=== PATIENT | female | born 1950 | race Caucasian/White ===

== ENCOUNTER 2016-06-06 14:31 | Inpatient (IN) | payer MEDICARE, BC ==
[~2016-06-06] VITALS: Ht 154.9 cm; Wt 94.6 kg
[2016-06-07] MEDS: LACTATED RINGER'S 1000 ML IV SCH (06:00)
[2016-06-07 06:05] VITALS: BP 122/77; PULSE 70; RESP 16; TEMP 97.8; O2SAT 97
[2016-06-07] MEDS ORDERED: ASPI81CH CHEW (06:05)
[2016-06-07] MEDS ORDERED: DEXI60CA PO (06:05)
[2016-06-07] MEDS ORDERED: CHOL1CAP34 PO (06:05)
[2016-06-07] MEDS ORDERED: CENTTAB PO (06:05)
[2016-06-07] MEDS ORDERED: OMEGCAP PO (06:05)
[2016-06-07] MEDS ORDERED: VITA500T49 PO (06:05)
[2016-06-07] MEDS ORDERED: LIPI20TA PO (06:05)
[2016-06-07] MEDS ORDERED: CALC1TAB87 PO (06:05)
[2016-06-07] MEDS ORDERED: IBAN150T3 PO (06:05)
[2016-06-07] MEDS ORDERED: VITA400T PO (06:05)
[2016-06-07] MEDS ORDERED: IRBE150T49 PO (06:05)
[2016-06-07] MEDS ORDERED: CHLORHEXIDINE GLUCONATE 4% SOLN 120 ML BTL TOP SCH (06:15)
[2016-06-07] MEDS ORDERED: TRANEXAMIC ACID IV SCH (06:15)
[2016-06-07] MEDS ORDERED: VANCOMYCIN 1000 MG/NS 250 ML (for <70 kg) IV SCH ×2 (06:15)
[2016-06-07] MEDS ORDERED: SODIUM CHLORID 0.9% 500 ML IV SCH (06:15)
[2016-06-07] MEDS ORDERED: EXPAREL PERI-ARTICULAR INJECTION (TOTAL VOL. 60 ML) P-ARTICULR SCH ×2 (06:15)
[2016-06-07] MEDS ORDERED: ceFAZolin 2 GM PREMIX 50 ML IV SCH (06:15)
[2016-06-07] MEDS ORDERED: METOPROLOL TARTRATE 25 MG TAB PO PRN (06:15)
[2016-06-07] MEDS ORDERED: INSULIN HUMAN REGULAR 1,000 UNITS/10 ML VIAL SQ PRN (06:15)
[2016-06-07] MEDS ORDERED: SODIUM CHLORIDE 0.9% IV SCH (06:15)
[2016-06-07] MEDS ORDERED: MIDAZOLAM HCL 2 MG/2 ML VIAL ONE (06:55)
[2016-06-07] MEDS ORDERED: ACETAMINOPHEN 1000 MG/100 ML VIAL IV ONE (06:55)
[2016-06-07] MEDS ORDERED: FAMOTIDINE 20 MG/2 ML VIAL ONE (06:55)
[2016-06-07] MEDS ORDERED: BUPIVACAINE/EPINEPHRINE 0.25% PF 30 ML VIAL ONE (07:09)
[2016-06-07] MEDS ORDERED: GENTAMICIN SULFATE 80 MG/2 ML VIAL ONE (07:09)
[2016-06-07] MEDS ORDERED: WALKER/ADULT/FO1 MIS (07:55)
[2016-06-07] MEDS ORDERED: HYDR-3288 PO (07:55)
[2016-06-07] MEDS ORDERED: XARE10TA PO (07:55)
--- NOTE | 2016-06-07 08:21 | PD.ORT.PN ---
Subjective Subjective Remarks Postoperative day 0 status post right femur long intramedullary nail for subtrochanteric femur stress fracture Objective Vitals Vital Signs Date Time Temp Pulse Resp B/P Pulse Ox O2 Delivery O2 Flow Rate FiO2 06/07/16 06:05 97.8 70 16 122/77 97 Assessment & Plan Assessment and Plan Weight-bear as tolerated Physical therapy Lovenox/Xarelto Discharge home Friday or Friday Kilo Elizondo MD Jun 07, 2016 08:21
--- NOTE | 2016-06-07 08:23 | PD.OP ---
cc: Kilo Zamorano MD Operative Report Date of Surgery: Jun 07, 2016 Preoperative Diagnosis: Right proximal femur atypical subtrochanteric femur stress fracture Postoperative Diagnosis: Right proximal femur atypical subtrochanteric femur stress fracture Procedure: Intramedullary nail fixation right femur Surgeon: Kilo Zamorano Linen Grader(s): FABRICIO Dc PA-C The surgical procedure was assisted by my physician acquisitions assistant. My P.A. presence was necessary throughout this case for the manipulation and positioning of the surgical extremity. My P.A. was assisting me throughout the duration of this procedure. The skill set of a physician acquisitions assistant was medically necessary to complete this procedure. During the surgical case the surgical pathologist was working at the back table and the physician acquisitions assistant was directly assisting me. Operation and Findings: Implants used: 11 mm x [360]mm 125 Synthes TFNA troch nail Plan of activity: Weight-bear as tolerated Patient was seen and evaluated preoperatively. The patient has significant hip pain from proximal femur fracture. The risk and benefits of surgery were discussed in depth with the patient to include bleeding, infection, nonunion, malunion, need for hip replacement, painful hardware, as well as medical competitions including blood clots, stroke, heart attack, and . Informed consent was obtained. Operative site was marked. Patient was brought to the operating room and placed on fracture table. IV sedation was administered by anesthesiologist. Timeout procedure was performed. Hip and leg were prepped with alcohol followed by DuraPrep and draped in the usual sterile fashion. IV antibiotics were given prior to incision. Procedure began with reduction of fracture. Traction was applied. The leg was manipulated to achieve reduction. Excellent reduction was achieved. Fluoroscopy was used to confirm reduction. A three inch incision was made proximal to the trochanter. Subcutaneous tissue was dissected bluntly. Guidepin was placed at the tip of the trochanter and advanced into the femoral canal. Fluoroscopy confirmed appropriate guidepin placement. A opening reamer was placed over the guidepin. A long ball tipped guide pin was now placed down the femoral canal into the center of the distal femur. The nail length was now measured. Fluoroscopy confirmed appropriate guidepin placement. Flexible reamers were now passed over the guidepin to ream the intramedullary canal. The Synthes TFNA nail was attached to the insertion handle. Nail was now placed over the guidepin into the femoral canal. Fluoroscopy confirmed appropriate nail placement. A second incision was made over the lateral thigh. Cannulas were placed through the insertion handle down to the femur. Guidepin was now placed through the femoral nail into the center of the femoral head. Fluoroscopy confirmed appropriate guidepin placement. Screw length was measured. Cannulated drill was placed over the guidepin. Appropriate length lag screw was now placed. Traction was released and compression was applied. The set screw was now tightened in dynamic mode. Next, using perfect [place] technique two distal interlocking screws were placed. Screw holes were predrilled and screw lengths were measured. Final fluoroscopy revealed well aligned fracture with well-placed hardware. Incision was closed with 3-0 Vicryl and toan. Sterile dressings were applied. Patient was awakened and transferred to recovery room. Kilo Zamorano MD Jun 07, 2016 08:23
[2016-06-07] MEDS ORDERED: SODIUM CHLORIDE 0.9% FLUSH 5 ML FLUSH IVF PRN (08:30)
[2016-06-07] MEDS ORDERED: NON-FORMULARY DRUG (Cholecalciferol (Vitamin D3) 50,000 UNITS) PO SCH (08:30)
[2016-06-07] MEDS ORDERED: diphenhydrAMINE HCL 25 MG CAP PO PRN (08:30)
[2016-06-07] MEDS ORDERED: ONDANSETRON HCL 4 MG/2 ML VIAL IVP PRN (08:30)
[2016-06-07] MEDS ORDERED: MORPHINE SULFATE 4 MG/ML INJ IV PUSH PRN (08:30)
[2016-06-07] MEDS ORDERED: ACETAMINOPHEN/HYDROcodone 325 MG/7.5 MG TAB PO PRN (08:30)
[2016-06-07] MEDS ORDERED: *morphine SULFATE 8 MG/ML PERIprocedure ONLY ONE ×3 (08:44→08:57)
[2016-06-07] MEDS ORDERED: fentaNYL CITRATE 250 MCG/5 ML AMP ONE (08:46)
[2016-06-07] MEDS ORDERED: DO NOT ADM ANY ANTICOAGULANT DRUGS XX PRN (09:00)
[2016-06-07] MEDS ORDERED: *HYDROmorphone PF 1 MG VIAL PERIprocedural Use ONLY ONE (09:06)
[2016-06-07] MEDS ORDERED: ERGOCALCIFEROL (VIT D2) 50,000 UNIT CAP PO ONE (10:00)
[2016-06-07] MEDS: ACETAMINOPHEN/HYDROcodone 325 MG/7.5 MG TAB PO PRN ×4 (11:01→21:31)
[2016-06-07] MEDS ORDERED: PROPOFOL 200 MG/20 ML AMP IV ONE (12:00)
[2016-06-07] MEDS ORDERED: ePHEDrine/NS 50 MG/5 ML SYR IV ONE (12:00)
[2016-06-07] MEDS ORDERED: ONDANSETRON HCL 4 MG/2 ML VIAL IV PUSH ONE (12:00)
[2016-06-07 12:35] VITALS: BP 129/59; PULSE 80; RESP 18; TEMP 95.6; O2SAT 100
--- NOTE | 2016-06-07 13:39 | RADRPT ---
EXAM DATE/TIME: 06/07/2016 08:08 [facility] COMPARISON: No previous studies available for comparison. INDICATIONS: ORIF Right femur IM Nail. MEDICAL HISTORY: None. SURGICAL HISTORY: None. ENCOUNTER: Initial ACUITY: 1 day PAIN SCORE: Non-responsive. LOCATION: Right Femur. FINDINGS: Hardware is noted within the right femur status post ORIF. Right knee replacement is also noted. Th e femur appears to be well-aligned. CONCLUSION: 1. Status post ORIF of right femur fracture with hardware in good position and femur well-aligned. Suleiman Prince MD on June 07, 2016 at 13:12 Board Certified Radiologist. This report was verified electronically.
[2016-06-07] MEDS: CALCIUM/VITAMIN D 250 MG/125 U TAB PO SCH ×2 (13:47→17:51)
[2016-06-07 16:00] VITALS: BP 136/65; PULSE 69; RESP 18; TEMP 96.7; O2SAT 95
--- NOTE | 2016-06-07 17:52 | EKG ---
Date Performed: 06/07/2016 Time Performed: 06:10:31 PTAGE: 66 years EKG: SINUS BRADYCARDIA BORDERLINE ECG NO PREVIOUS TRACING DOCTOR: Maegan Littlejohn Interpretating Date/Time 06/07/2016 17:51:38
[2016-06-07] MEDS ORDERED: CHOLECALCIFEROL (VIT D3) 400 UNIT TAB PO SCH (21:00)
[2016-06-07] MEDS: SODIUM CHLORIDE 0.9% FLUSH 5 ML FLUSH IVF SCH (21:30)
[2016-06-07] MEDS: ATORVASTATIN 20 MG TAB PO SCH (21:30)
[2016-06-07] MEDS: LOSARTAN 50 MG TAB PO SCH (21:30)
[2016-06-08] VITALS (8 sets, daily range): BP systolic 106–129; BP diastolic 54–61; PULSE 67–97; RESP 16–20; TEMP 96.7–98.8; O2SAT 94–100
[2016-06-08] MEDS: ACETAMINOPHEN/HYDROcodone 325 MG/7.5 MG TAB PO PRN ×7 (01:29→21:23)
[2016-06-08 07:26] LABS: HEMATOCRIT 34.7 % (35.0-46.0); REVIEW FLAG FINAL
[2016-06-08] MEDS: CHOLECALCIFEROL (VIT D3) 5000 UNIT CAP PO SCH (08:06)
[2016-06-08] MEDS: CALCIUM/VITAMIN D 250 MG/125 U TAB PO SCH ×3 (08:06→18:00)
[2016-06-08] MEDS: ASPIRIN 81 MG CHEW TAB CHEW SCH (08:07)
[2016-06-08] MEDS: CYANOCOBALAMIN 1,000 MCG TAB PO SCH (08:08)
[2016-06-08] MEDS: ENOXAPARIN SODIUM 30 MG/0.3 ML SYRINGE SQ SCH (08:08)
[2016-06-08] MEDS: SODIUM CHLORIDE 0.9% FLUSH 5 ML FLUSH IVF SCH ×2 (08:08→20:49)
--- NOTE | 2016-06-08 12:41 | PD.ORT.PN ---
Subjective Subjective Remarks Patient comfortable. Pain controlled. OOB sitting in recliner. Eating lunch. NAD. Objective Vitals Vital Signs Date Time Temp Pulse Resp B/P Pulse Ox O2 Delivery O2 Flow Rate FiO2 06/08/16 10:09 98 21 06/08/16 08:00 96.8 67 20 114/55 98 06/08/16 05:10 94 21 06/08/16 04:00 96.9 75 18 106/54 97 06/08/16 00:00 96.7 74 16 116/57 98 06/07/16 16:00 96.7 69 18 136/65 95 06/07/16 14:45 18 I/O 06/07/16 06/07/16 06/07/16 06/08/16 06/08/16 06/08/16 07:00 15:00 23:00 07:00 15:00 23:00 Intake Total 1000 ml 1200 ml 366 ml Output Total 50 ml Balance 950 ml 1200 ml 366 ml Intake Oral 1200 ml 240 ml IV Total 126 ml Other 1000 ml Output Estimated Blood Loss 50 ml # Voids 4 1 # Bowel Movements 0 0 Result Diagram: 06/08/16 0556 Procedures ORIF Right Hip Intertrochanteric Nail Objective Remarks Right Hip dressing in place moderate drainage calves soft negative Andrae's NVI Assessment & Plan Ortho Post Op Day #: 1 Problem List: Assessment and Plan POD #1 Physical therapy -Weightbearing as tolerated Initiate dressing changes on POD #2 Pain management DVT prophylaxis Lovenox/Xarelto Discharge anticipating home Friday Elmo Barajas Jun 08, 2016 12:41
[2016-06-08] MEDS: BISACODYL EC 5 MG TABEC PO PRN (14:51)
[2016-06-08] MEDS: PANTOPRAZOLE SOD 20 MG DELAYED RELEASE TAB PO SCH (18:25)
[2016-06-08] MEDS: LACTATED RINGER'S 1000 ML IV SCH (19:22)
[2016-06-08] MEDS: LOSARTAN 50 MG TAB PO SCH (20:49)
[2016-06-08] MEDS: ATORVASTATIN 20 MG TAB PO SCH (20:49)
[2016-06-09 00:05] VITALS: BP 106/53; PULSE 81; RESP 16; TEMP 97.8; O2SAT 97
[2016-06-09] MEDS: ACETAMINOPHEN/HYDROcodone 325 MG/7.5 MG TAB PO PRN ×4 (00:28→10:39)
[2016-06-09] MEDS: BISACODYL EC 5 MG TABEC PO PRN (00:33)
[2016-06-09] MEDS: PANTOPRAZOLE SOD 20 MG DELAYED RELEASE TAB PO SCH (05:04)
[2016-06-09] MEDS: ENOXAPARIN SODIUM 30 MG/0.3 ML SYRINGE SQ SCH (07:58)
[2016-06-09 08:00] VITALS: BP 134/59; PULSE 96; RESP 20; TEMP 98.1; O2SAT 98
[2016-06-09] MEDS: CYANOCOBALAMIN 1,000 MCG TAB PO SCH (09:15)
[2016-06-09] MEDS: ASPIRIN 81 MG CHEW TAB CHEW SCH (09:15)
[2016-06-09] MEDS: CALCIUM/VITAMIN D 250 MG/125 U TAB PO SCH (09:15)
[2016-06-09] MEDS: CHOLECALCIFEROL (VIT D3) 5000 UNIT CAP PO SCH (09:15)
--- NOTE | 2016-06-09 09:46 | PD.ORT.PN ---
Subjective Subjective Remarks Patient comfortable. Pain controlled. OOB sitting in recliner. Objective Vitals Vital Signs Date Time Temp Pulse Resp B/P Pulse Ox O2 Delivery O2 Flow Rate FiO2 06/09/16 08:00 98.1 96 20 134/59 98 06/09/16 05:49 18 06/09/16 00:05 97.8 81 16 106/53 97 06/08/16 20:00 98.8 97 18 129/61 98 06/08/16 16:00 97.1 84 20 125/58 100 06/08/16 12:00 97.4 82 20 108/57 99 06/08/16 10:09 98 21 I/O 06/08/16 06/08/16 06/08/16 06/09/16 06/09/16 06/09/16 07:00 15:00 23:00 07:00 15:00 23:00 Intake Total 366 ml 720 ml 480 ml 480 ml Output Total 750 ml Balance 366 ml -30 ml 480 ml 480 ml Intake Oral 240 ml 720 ml 480 ml 480 ml IV Total 126 ml Output Urine Total 750 ml # Voids 1 3 2 1 # Bowel Movements 0 Result Diagram: 06/08/16 0556 Procedures ORIF Right Hip Intramedullary Nail Objective Remarks Right Hip dressing C/D/I moderate drainage calves soft negative Andrae's NVI Assessment & Plan Assessment and Plan POD #2 Physical therapy -Weightbearing as tolerated Initiate dressing changes on POD #2 Pain management DVT prophylaxis Lovenox/Xarelto Orthopedically stable for discharge Discharge home today F/U with Dr. Elizondo or PA in office Elmo Barajas Jun 09, 2016 09:46
== END 2016-06-09 11:05 | disposition home or self-care (01) | DRG 482 ==
LOC: HSDI 06-07 05:13 → N06A 06-07 12:31
PROVIDERS: ADMIT Orthopaedic Surgery Orthopaedic Trauma; ATTEND Orthopaedic Surgery Orthopaedic Trauma
PROC: 0QH606Z Insertion of Intramedullary Internal Fixation Device into Right Upper Femur, Open Approach (ICD-10-PCS; principal; 2016-06-07 07:23)
DX: M84.351A Stress fracture, right femur, initial encounter for fracture (principal); I10 Essential (primary) hypertension; M16.0 Bilateral primary osteoarthritis of hip; M81.0 Age-related osteoporosis without current pathological fracture; M53.3 Sacrococcygeal disorders, not elsewhere classified; E78.5 Hyperlipidemia, unspecified
CPT/HCPCS: 73552; 76000; 82306; 85014; 85018; 93005; C1713; J0131; J0690; J1170; J1580; J1650; J2250; J2270; J2405; J3010; J3370; J7050; J7120

== ENCOUNTER 2016-08-18 06:51 | Observation (INO) | payer MEDICARE, BC ==
[2016-08-18] VITALS (10 sets, daily range): BP systolic 120–191; BP diastolic 61–82; PULSE 72–82; RESP 17–20; TEMP 96.7–98.8; O2SAT 96–100
[~2016-08-18] VITALS: Ht 154.9 cm; Wt 90.0 kg
[~2016-08-18 06:51] MED LIST: ASPI81CH CHEW; CALC1TAB87 PO; CENTTAB PO; CHOL1CAP34 PO; DEXI60CA PO; HYDR-3288 PO; IBAN150T3 PO; IRBE150T49 PO; LIPI20TA PO; OMEGCAP PO; VITA400T PO; VITA500T49 PO; WALKER/ADULT/FO1 MIS; XARE10TA PO
[2016-08-18] MEDS ORDERED: SODIUM CHLORIDE 0.9% FLUSH 10 ML FLUSH IVF PRN (07:30)
[2016-08-18] MEDS ORDERED: ASPIRIN 325 MG TAB PO ONE (07:30)
[2016-08-18] MEDS ORDERED: SODIUM CHLORID 0.9% 500 ML INJ 500 ML IV ONE (07:30)
[2016-08-18] MEDS ORDERED: NITROGLYCERIN 2% OINT 1 GM PACKET TOP ONE (07:30)
--- NOTE | 2016-08-18 07:31 | PD ---
HPI Chief Complaint: Chest Pain Time Seen by Provider: 07:21 Travel History International Travel<30 days: No Contact w/Intl Traveler<30days: No Traveled to known affect area: No History of Present Illness HPI 66-year-old female with history of gastroesophageal reflux, presents to the ER today for 8 out of 10 substernal chest discomfort which she states feels like pressure. She has been nauseous. She denies any shortness of breath, coughing , fevers, or any other symptoms. She does not know any exacerbating or alleviating factors. She states it feels different from her reflux. She had a stress test done several months ago which was negative. Modifying Factors: None Associated Signs & Symptoms: Substernal chest pains, nausea Risk Factors: None PFSH Past Medical History Arthritis: Yes Asthma: No Autoimmune Disease: No Cancer: Yes (Indolent Mantle Cell Lymphoma) Cardiovascular Problems: No Chemotherapy: No COPD: No Cerebrovascular Accident: No Diabetes: No Endocrine: No Genitourinary: No Hypertension: Yes Immune Disorder: No Medical other: Yes (OSTEOPEROSIS) Musculoskeletal: Yes (osteo arthritis) Neurologic: No Reproductive: No Migraines: No Radiation Therapy: No Seizures: No Sickle Cell Disease: No Sleep Apnea: No Thyroid Disease: No Tubal Ligation: Yes Past Surgical History Abdominal Surgery: No Cardiac Surgery: No Ear Surgery: No Endocrine Surgery: Yes (tonsils) Eye Surgery: No Genitourinary Surgery: No Gynecologic Surgery: Yes (hysterectomy 80's) Hysterectomy: Yes Joint Replacement: Yes (BILAT KNEE) Oral Surgery: No Pacemaker: No Other Surgery: Yes (both knees) Social History Alcohol Use: Yes (occ) Tobacco Use: No Substance Use: No Allergies-Medications (Allergen,Severity, Reaction): Coded Allergies: No Known Allergies (Unverified , 08/18/16) Reported Meds & Prescriptions Reported Meds & Active Scripts Active [place] (Hydrocodone-Acetaminophen) 7.5-325 mg Tab 1 Tab PO Q4H PRN Walker/Adult/Folding (Device) 1 Mis Mis 1 Ea .ROUTE DIRECTED Reported Vitamin B12 (Cyanocobalamin) 500 Mcg Tab 500 Mcg PO DAILY Vitamin D-3 (Cholecalciferol) 400 Unit Tab 2 Tab PO BID [place]-3 Fish Oil/Vitamin (Fish Oil-Cholecalciferol) 1,000-1,000 Mg Cap 1 Cap PO TID Calcium 600 with Vitamin D (Calcium Carbonate-Cholecalciferol) 600-400 mg-Unit Tab 1 Tab PO BID Aspirin 81 Mg Chew 81 Mg CHEW DAILY Centrum Silver (Multiple Vitamins W/ Minerals) 1 Tab 1 Tab PO DAILY Vitamin D3 (Cholecalciferol) 50,000 Unit Cap 50,000 Units PO MONTHLY Dexilant (Dexlansoprazole) 60 Mg Cap 60 Mg PO DAILY PRN Avapro (Irbesartan) 150 Mg Tab 150 Mg PO HS Lipitor (Atorvastatin Calcium) 20 Mg Tab 20 Mg PO HS Review of Systems Except as stated in HPI: all other systems reviewed are Neg Physical Exam Narrative GENERAL: Mildly anxious appearing elderly white female patient currently in mild distress. Awake and oriented 3. SKIN: Warm and dry. HEAD: Atraumatic. Normocephalic. EYES: Pupils equal and round. No scleral icterus. No injection or drainage. ENT: No nasal bleeding or discharge. Mucous membranes pink and moist. NECK: Trachea midline. No JVD. CARDIOVASCULAR: Regular rate and rhythm. No murmur appreciated. Pulses are present and equal bilaterally. RESPIRATORY: No accessory muscle use. Clear to auscultation. Breath sounds equal bilaterally. GASTROINTESTINAL: Abdomen soft, non-tender, nondistended. Hepatic and splenic margins not palpable. MUSCULOSKELETAL: No obvious deformities. No clubbing. No cyanosis. No edema. NEUROLOGICAL: Awake and alert. No obvious cranial nerve deficits. Motor grossly within normal limits. Normal speech. PSYCHIATRIC: Appropriate mood and affect; insight and judgment normal. Data Data Last Documented VS Vital Signs Date Time Temp Pulse Resp B/P Pulse Ox O2 Delivery O2 Flow Rate FiO2 08/18/16 07:27 81 20 100 Room Air 08/18/16 07:25 98.0 170/76 Orders Electrocardiogram (08/18/16 07:21) Ckmb (Isoenzyme) Profile (08/18/16 07:21) Complete Blood Count With Diff (08/18/16 07:21) Comprehensive Metabolic Panel (08/18/16 07:21) Magnesium (Mg) (08/18/16 07:21) Prothrombin Time / Inr (Pt) (08/18/16 07:21) Act Partial Throm Time (Ptt) (08/18/16 07:21) Troponin I (08/18/16 07:21) Lipase (08/18/16 07:21) Chest, Single Ap (08/18/16 07:21) Ecg Monitoring (08/18/16 07:21) Bilateral Bp Monitoring (08/18/16 07:21) Iv Access Insert/Monitor (08/18/16 07:21) Oximetry (08/18/16 07:21) Oxygen Administration (08/18/16 07:21) Aspirin (Aspirin) (08/18/16 07:30) Nitroglycerin 2% Oint (Nitroglycerin 2% (08/18/16 07:30) Sodium Chloride 0.9% Flush (Ns Flush) (08/18/16 07:30) Sodium Chlorid 0.9% 500 Ml Inj (Ns 500 M (08/18/16 07:30) Labs Laboratory Tests Test 08/18/16 07:52 White Blood Count 9.3 TH/MM3 Red Blood Count 4.34 MIL/MM3 Hemoglobin 12.7 GM/DL Hematocrit 36.9 % Mean Corpuscular Volume 84.9 FL Mean Corpuscular Hemoglobin 29.2 PG Mean Corpuscular Hemoglobin 34.4 % Concent Red Cell Distribution Width 14.7 % Platelet Count 330 TH/MM3 Mean Platelet Volume 7.7 FL Neutrophils (%) (Auto) 47.6 % Lymphocytes (%) (Auto) 40.1 % Monocytes (%) (Auto) 8.8 % Eosinophils (%) (Auto) 3.0 % Basophils (%) (Auto) 0.5 % Neutrophils # (Auto) 4.5 TH/MM3 Lymphocytes # (Auto) 3.7 TH/MM3 Monocytes # (Auto) 0.8 TH/MM3 Eosinophils # (Auto) 0.3 TH/MM3 Basophils # (Auto) 0.0 TH/MM3 CBC Comment DIFF FINAL Differential Comment Prothrombin Time 10.0 SEC Prothromb Time International 0.9 RATIO Ratio Activated Partial 25.9 SEC Thromboplast Time Sodium Level 141 MEQ/L Potassium Level 3.7 MEQ/L Chloride Level 105 MEQ/L Carbon Dioxide Level 27.2 MEQ/L Anion Gap 9 MEQ/L Blood Urea Nitrogen 21 MG/DL Creatinine 0.65 MG/DL Estimat Glomerular Filtration 91 ML/MIN Rate Random Glucose 100 MG/DL Calcium Level 8.6 MG/DL Magnesium Level 2.1 MG/DL Total Bilirubin 0.3 MG/DL Aspartate Amino Transf 23 U/L (AST/SGOT) Alanine Aminotransferase 34 U/L (ALT/SGPT) Alkaline Phosphatase 68 U/L Total Creatine Kinase 39 U/L Troponin I LESS THAN 0.02 NG/ML Total Protein 6.3 GM/DL Albumin 3.4 GM/DL Lipase 150 U/L MDM Medical Decision Making Medical Screen Exam Complete: Yes Emergency Medical Condition: Yes Medical Record Reviewed: Yes Interpretation(s) EKG shows NSR, no ST elevation or depression, and no arrhythmias. No significant T-wave inversions. Laboratory Tests Test 08/18/16 07:52 Monocytes (%) (Auto) 8.8 % (0.0-8.0) Blood Urea Nitrogen 21 MG/DL (7-18) Troponin I LESS THAN 0.02 NG/ML (0.02-0.05) Total Protein 6.3 GM/DL (6.4-8.2) Last 24 hours Impressions Chest X-Ray 08/18/16 0721 Signed Impressions: Service Date/Time: Thursday, August 18, 2016 07:33 - CONCLUSION: Normal examination. Bell Shannon MD Differential Diagnosis Chest painsACS versus dysrhythmias versus anxiety attack versus gastroesophageal reflux versus gastritis versus pancreatitis Narrative Course On reevaluation at 9 AM, patient is feeling much improved after nitroglycerin. At this point, EKG and cardiac enzymes are negative. My plan would be to admit the patient for further evaluation a chest pains. Diagnosis Primary Impression: Chest pain Admitting Information Admitting Physician Requests: Admit Millie Monroy MD Aug 18, 2016 07:31
--- NOTE | 2016-08-18 07:44 | RADRPT ---
EXAM DATE/TIME: 08/18/2016 07:33 [facility] COMPARISON: No previous studies available for comparison. INDICATIONS : Chest pain. MEDICAL HISTORY : None. SURGICAL HISTORY : None. ENCOUNTER: Initial ACUITY: 1 day PAIN SCORE: 6/10 LOCATION: Chest, midline. FINDINGS: A single view of the chest demonstrates the lungs to be symmetrically aerated without evidence of mas s, infiltrate or effusion. The cardiomediastinal contours are unremarkable. Osseous structures are intact. CONCLUSION: Normal examination. Bell Shannon MD on August 18, 2016 at 7:41 Board Certified Radiologist. This report was verified electronically.
[2016-08-18 08:23] LABS: AUTOMATED NEUTROPHIL # 4.5 TH/MM3 (1.8-7.7); BASOPHIL % 0.5 % (0.0-2.0); EOSINOPHIL # 0.3 TH/MM3 (0-0.4); HEMATOCRIT 36.9 % (35.0-46.0); HEMO FLAGS DIFF FINAL; LYMPH % 40.1 % (9.0-44.0); LYMPHOCYTE # 3.7 TH/MM3 (1.0-4.8); MEAN CELL VOLUME 84.9 FL (80.0-100.0); MEAN CORPUSCULAR HEMOGLOBIN 29.2 PG (27.0-34.0); MEAN CORPUSCULAR HGB CONC 34.4 % (32.0-36.0); MONO % 8.8 % (0.0-8.0); NEUT % 47.6 % (16.0-70.0); PLATELET COUNT 330 TH/MM3 (150-450); RED BLOOD COUNT 4.34 MIL/MM3 (4.00-5.30); RED CELL DISTRIBUTION WIDTH 14.7 % (11.6-17.2); WHITE BLOOD COUNT 9.3 TH/MM3 (4.0-11.0)
[2016-08-18 08:31] LABS: APTT (PATIENT) 25.9 SEC (24.3-30.1); INTERNATIONAL NORMALIZED RATIO 0.9 RATIO
[2016-08-18 08:44] LABS: ANION GAP 9 MEQ/L (5-15); AST (GOT) 23 U/L (15-37); BICARBONATE 27.2 MEQ/L (21.0-32.0); BLOOD UREA NITROGEN 21 MG/DL (7-18); CHLORIDE 105 MEQ/L (98-107); GLOMERULAR FILTRATION RATE 91 ML/MIN (>89); MAGNESIUM 2.1 MG/DL (1.5-2.5); POTASSIUM 3.7 MEQ/L (3.5-5.1); SODIUM (NA) 141 MEQ/L (136-145)
[2016-08-18 08:49] LABS: ALKALINE PHOSPHATASE 68 U/L (45-117); ALT (GPT) 34 U/L (10-53); TOTAL BILIRUBIN ADULT 0.3 MG/DL (0.2-1.0)
[2016-08-18 09:01] LABS: CREATINE KINASE 39 U/L (26-192)
[2016-08-18] MEDS ORDERED: NITROGLYCERIN 0.4 MG SL 25 TABS/BTL SL PRN (09:30)
[2016-08-18] MEDS ORDERED: ONDANSETRON HCL 4 MG/2 ML VIAL IV PRN (09:30)
[2016-08-18 11:49] LABS: CREATINE KINASE 56 U/L (26-192)
[2016-08-18] MEDS: NITROGLYCERIN 2% OINT 1 GM PACKET TOPICAL SCH ×2 (14:03→17:44)
[2016-08-18 14:41] LABS: CREATINE KINASE 39 U/L (26-192)
--- NOTE | 2016-08-18 15:01 | EKG ---
Date Performed: 08/18/2016 Time Performed: 07:01:29 PTAGE: 66 years EKG: Sinus rhythm Since previous tracing, no significant change noted NORMAL ECG PREVIOUS TRACING : 06/07/16 06.10.31 DOCTOR: Carlos Turner Interpretating Date/Time 08/18/2016 15:01:34
[2016-08-18] MEDS: ACETAMINOPHEN 500 MG CPLT PO PRN ×2 (15:44→22:40)
[2016-08-18] MEDS ORDERED: ALUMINUM/MAGNESIUM/SIMETH 30 ML CUP PO PRN (16:45)
[2016-08-18] MEDS ORDERED: FAMOTIDINE 20 MG TAB PO PRN (17:15)
[2016-08-18] MEDS ORDERED: ATORVASTATIN 20 MG TAB PO SCH (21:00)
[2016-08-18] MEDS ORDERED: LOSARTAN 50 MG TAB PO SCH (21:00)
[2016-08-18] MEDS: SODIUM CHLORIDE 0.9% FLUSH 10 ML FLUSH IV FLUSH SCH (21:00)
[2016-08-18] MEDS ORDERED: ZOLPIDEM TARTRATE 5 MG TAB PO PRN (21:00)
[2016-08-19] MEDS: NITROGLYCERIN 2% OINT 1 GM PACKET TOPICAL SCH
[2016-08-19 00:20] VITALS: PULSE 74
[2016-08-19 03:45] VITALS: BP 165/84; PULSE 75; RESP 18; TEMP 97.8; O2SAT 97
[2016-08-19 07:28] VITALS: BP 127/72; PULSE 71; RESP 20; TEMP 97.9; O2SAT 96
[2016-08-19] MEDS ORDERED: cloNIDine HCL 0.2 MG TAB PO PRN (08:00)
--- NOTE | 2016-08-19 08:27 | MH ---
cc: VICK HERNANDEZ MD, DAVID A. M.D. KROCHAK, ELIZABETH M.D. DATE OF : 1950 DATE OF ADMISSION: 08/18/2016 CHIEF COMPLAINT Chest pain. HISTORY OF PRESENT ILLNESS The patient awoke at her usual time around 04:00 a.m. and was up and about doing morning activities when she felt a little bit nauseated. This was followed around 6 a.m. by some mid sternal chest discomfort that she describes as a sudden onset of pressure that was intense from the start at a 7/10 on a 0/10 pain scale. She woke up her after approximately 30 to 45 minutes of discomfort and decided to come here for further evaluation. She had no radiation of discomfort to the jaw, head, neck, arm or back. She states after she got here shortly before she was given nitro, it did radiate downward into the mid epigastric and upper umbilical area. She had no diaphoresis, no dyspnea, no vomiting. The worse intensity she states was right before she received the nitro paste at an 8/10 on 0/10 pain scale. After receiving the nitro paste at 8:15 she states all of the discomfort slowly subsided in approximately 10 to 15 minutes. She relates to approximately [id number] hours of continuous discomfort as described above. Currently when seen in the ER she was chest pain free. She states she does have a history of GERD but felt that this discomfort was much different than her usual GERD symptoms. She had not eaten anything this morning. She had approximately three sips of tea. She just returned from a [place] cruise with her and has been feeling fine. She does endorse that she has had a stress test done approximately 3-4 months ago, she believes the beginning of April for a different type of pain that she was having in the left breast area. Her primary care physician, Dr. Chandra sent her for referral and she had an exercise treadmill test which she endorses was normal. She relates that this pain is new today and different than what she had prior. PAST MEDICAL HISTORY: Significant for: 1. Hypertension. 2. Dyslipidemia. 3. Vitamin D deficiency. 4. GERD. 5. Osteoporosis. 6. Osteoarthritis. 7. Indolent mantle cell lymphoma, currently with surveillance, no treatment needed. 8. She denies any history of diabetes. PAST SURGICAL HISTORY: 1. BTL. 2. Appendectomy. 3. Right shoulder rotator cuff repair. 4. Bilateral knee arthroplasties. 5. Bilateral elbow surgery for tendinitis. 6. Hysterectomy. 7. Tonsillectomy 8. In May of this year, she had nail fixation of the right femur for stress fracture. FAMILY HISTORY She denies any early onset CAD in her primary relatives. SOCIAL HISTORY She is . Past tobacco user of half a pack to one-pack per day for 20 years. She quit approximately 20+ years ago, she drinks alcohol socially, sometimes none, other times one drink. They just returned from a cruise. She denies any substance abuse. She does some walking for exercise but has not really been active secondary to the surgery for her femur a couple of months back. PAST CARDIAC TESTING: As discussed above. MEDICATIONS 1. Vitamin B12. 2. Vitamin D3. 3. Ama III fish oil. 4. Calcium with vitamin D. 5. Aspirin. 6. Multivitamin 7. Dexalant. 8. Avapro. 9. Lipitor. Those medications were verified per her medication list. ALLERGIES NKA. REVIEW OF SYSTEMS Positive for what is discussed above in HPI. Positive for intermittent GERD symptoms as she states relatively under good control, uses her Dexalant on a p.r.n. basis usually twice a week. Some arthritic pains intermittently, nothing acute. Right hip is healing well she states and feeling better. Remaining system review 10 point is essentially negative. PHYSICAL EXAMINATION Vital signs: Stable. Temperature on arrival to ED 97.7, pulse 77, respiratory rate 20, blood pressure 191/82, O2 saturations 96% on room air. Blood pressure improved to normal range during assessment in the ER. Generally, extremely pleasant and friendly 66-year-old, overweight female lying quietly in bed initially seen in the ER with her at the bedside also very pleasant, friendly. She is alert and oriented and in no acute distress and was chest pain free at time of assessment. She appears many years younger than her stated age. Head is atraumatic, normocephalic. Eyes: Sclerae clear, nonicteric. EOMI. Neck: Supple. Trachea is midline. No JVD or carotid bruits. CV is S1-S2 and RRR. No S3-S4 rub, gallop or murmur. Abdomen is softly obese. There is no tenderness, guarding, rigidity or rebound tenderness on exam. Musculoskeletal: There is no reproducible mid sternal or chest wall tenderness on exam. Extremities: She moves all extremities well. Pulses are 2+ throughout. No bruits. No lower leg edema. Neuro: CN II-XII grossly intact. Gait is not observed. Psych: Very pleasant, friendly and normal mood, affect, judgment. Respiratory: CTA - B good air movement. No wheezes, rales or rhonchi. LABORATORY DATA CBC unremarkable. Coag profile unremarkable. Complete chemistry total protein 6.3 otherwise unremarkable. This includes normal liver function and lipase. First CK and troponin negative. IMAGING STUDIES Chest film showing a normal examination. First EKG normal sinus rhythm. No ST-T changes to suggest ischemia. ASSESSMENT/PLAN Chest pain in a patient with risk factors for heart disease. Currently chest pain free after nitro paste. A 2-1/2-hour continuous episode. Recent exercise treadmill test approximately 3-1/2 to 4 months ago which as she endorses was normal. Currently second set of enzymes will be drawn. She will be seen and evaluated by Dr. Vick Hernandez in cardiology through the chest pain center. Further plan will follow dependent upon the second troponin and EKG and Dr. Hernandez's recommendations. Medication reconciliation has been done and medications will be resumed as appropriate as prior to admission. Dictated by: HARVEY Fletcher MD COLIN Grossman/CIRO /11:17 AM /8:27 AM
[2016-08-19] MEDS: SODIUM CHLORIDE 0.9% FLUSH 10 ML FLUSH IV FLUSH SCH (08:51)
[2016-08-19] MEDS ORDERED: MULTIVITAMIN HEMATINIC THERAPEUTIC TAB PO SCH (09:00)
[2016-08-19] MEDS ORDERED: ASPIRIN 325 MG TAB PO SCH (09:00)
[2016-08-19] MEDS ORDERED: REGADENOSON INJ 0.4 MG/5 ML SYR ONE (09:45)
--- NOTE | 2016-08-19 11:15 | RADRPT ---
EXAM DATE/TIME: 08/19/2016 09:17 [facility] COMPARISON: No previous studies available for comparison. INDICATIONS : Substernal chest pain with nausea for 1 day. Angina. DOSE: 25.8 mCi Tc99m Myoview at stress. 8.5 mCi Tc99m Myoview at rest. 0.4 mg Lexiscan STRESS SYMPTOMS: Shortness of breath. EJECTION FRACTION: > 70% MEDICAL HISTORY : Hypercholesterolemia. Hypertension. Gastroesophageal reflux disease. SURGICAL HISTORY : Total knee replacement, right. Total knee replacement, left. Hysterectomy. ENCOUNTER: Initial ACUITY: 1 day PAIN SCALE: 8/10 LOCATION: Substernal chest TECHNIQUE: The patient underwent pharmacologic stress with infusion of prescribed dose. Continuous ECG tracing was monitored during stress. Gated SPECT imaging was performed after stress and conventional SPECT i maging was performed at rest. The examination was performed on a SPECT/CT scanner, both attenuation and non-corrected datasets were reviewed. FINDINGS: DISTRIBUTION: The maximum perfused segment at stress is in the anterior lateral wall. PERFUSION STUDY: The pattern of perfusion at stress is within normal limits. Moderate gut activity does = obscure the inferior wall. GATED STUDY: There is intact wall motion and thickening without hypokinetic or dyskinetic segments. CONCLUSION: Negative for stress-induced ischemia. RISK CATEGORY: Low (<1% Annual Mortality Rate) Raza Montero MD FACR on August 19, 2016 at 11:05 Board Certified Radiologist. This report was verified electronically.
--- NOTE | 2016-08-19 11:22 | HHI.DCPOC ---
Discharge Care Plan Diagnosis: (1) Chest pain (2) Hypertension (3) Hyperlipidemia (4) GERD (gastroesophageal reflux disease) Goals to Promote Your Health * To prevent worsening of your condition and complications * To maintain your health at the optimal level Directions to Meet Your Goals Take your medications as prescribed Follow your dietary instruction Follow activity as directed Keep your appointments as scheduled Take your immunizations and boosters as scheduled If your symptoms worsen call your PCP, if no PCP go to Urgent Care Center or Emergency Room Smoking is Dangerous to Your Health. Avoid second hand smoke Call the 24-hour hour crisis hotline for domestic abuse at Nicholas Eduardo Aug 19, 2016 11:22
[2016-08-19 11:52] VITALS: PULSE 70
--- NOTE | 2016-08-19 13:23 | EKG ---
Date Performed: 08/18/2016 Time Performed: 11:36:42 PTAGE: 66 years EKG: Sinus rhythm NORMAL ECG PREVIOUS TRACING : 08/18/2016 07.01 Since previous tracing, no significant change noted DOCTOR: Rico Sorto Interpretating Date/Time 08/19/2016 13:21:31
--- NOTE | 2016-08-19 13:24 | EKG ---
Date Performed: 08/18/2016 Time Performed: 14:28:57 PTAGE: 66 years EKG: Sinus rhythm NORMAL ECG PREVIOUS TRACING : 08/18/2016 07.01 Since previous tracing, no significant change noted DOCTOR: Rico Sorto Interpretating Date/Time 08/19/2016 13:22:00
--- NOTE | 2016-08-19 13:27 | TR ---
Date Performed: 08/19/2016 Time Performed: 09:50:41 DOCTOR: Rico Sorto DRUG LIST: CLINICAL HISTORY: CHEST PAIN REASON FOR TEST: REASON FOR ENDING: OBSERVATION: CONCLUSION: Lexiscan stress test was performed under standard four minute protocol. Radionuclid e was injected one minute prior to ending the test. No electrocardiographic abormalities were present to suggest ischemia. Nuclear imaging and interpretation are pending. COMMENTS:
== END 2016-08-19 12:22 | disposition home or self-care (01) ==
LOC: NEPC 06:51 → NEDH 09:12 → NEPGCP 10:48
DX: R07.9 Chest pain, unspecified (principal); K21.9 Gastro-esophageal reflux disease without esophagitis; I10 Essential (primary) hypertension; E78.5 Hyperlipidemia, unspecified; E55.9 Vitamin D deficiency, unspecified; M81.0 Age-related osteoporosis without current pathological fracture; M19.90 Unspecified osteoarthritis, unspecified site; F17.200 Nicotine dependence, unspecified, uncomplicated; E78.00 Pure hypercholesterolemia, unspecified; Z79.82 Long term (current) use of aspirin; Z85.72 Personal history of non-Hodgkin lymphomas; Z96.653 Presence of artificial knee joint, bilateral
CPT/HCPCS: 71010; 78452; 80053; 82550; 83690; 83735; 84484; 85025; 85610; 85730; 93005; 93017; 96374; 99285; A9502; G0378; J2785; J7040